=== PATIENT | male | born 1990 ===

== ENCOUNTER 2017-03-25 00:48 | Emergency (ER) | payer SELFPAY ==
[2017-03-25 01:00] VITALS: BP 120/70; RESP 16; TEMP 98.1
[2017-03-25] MEDS ORDERED: Oxycodone/Acetaminophen 5/325 mg Tab PO STA (01:06)
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
[2017-03-25 02:29] VITALS: PULSE 87
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
[2017-03-25 19:49] VITALS: O2SAT 98
== END 2017-03-25 02:30 ==
LOC: EDBD 00:48 → H.ER 00:48
DX: S20.219A Contusion of unspecified front wall of thorax, initial encounter (principal); S09.93XA Unspecified injury of face, initial encounter; Y04.0XXA Assault by unarmed brawl or fight, initial encounter; Y92.89 Other specified places as the place of occurrence of the external cause